=== PATIENT | male | born 1980 | race Caucasian/White ===

== ENCOUNTER 2021-05-20 13:51 | Emergency (ER) | payer OTHER ==
[~2021-05-20] VITALS: Ht 185.4 cm; Wt 77.1 kg
[2021-05-20 15:15] VITALS: BP 126/86
== END 2021-05-20 15:16 | disposition home or self-care (01) ==
LOC: M.ERS 13:51
DX: Z20.822 Contact with and (suspected) exposure to COVID-19 (principal)